=== PATIENT | female | born 1945 | race Hispanic/Latino ===

== ENCOUNTER 2017-05-06 12:18 | Emergency (ER) | payer MEDICARE ==
[~2017-05-06 12:18] MED LIST: ATEN50TA PO; ENAL10TA PO; ESCI10TA54 PO; METF500T6 PO; PANT40TA25 PO; TRAM50TA4 PO
[2017-05-06] MEDS ORDERED: LIDOCAINE 5% TOPICAL PATCH TP ONE (12:47)
[2017-05-06] MEDS ORDERED: KETOROLAC TROMETHAMINE 30MG/ML ONE (12:48)
== END 2017-05-06 14:31 | disposition home or self-care (01) ==
LOC: EDH 12:18
DX: M13.812 Other specified arthritis, left shoulder (principal); E11.9 Type 2 diabetes mellitus without complications; E78.5 Hyperlipidemia, unspecified; I10 Essential (primary) hypertension; M81.0 Age-related osteoporosis without current pathological fracture; Z88.6 Allergy status to analgesic agent
CPT/HCPCS: 96372; 99283; J1885

== ENCOUNTER → 2017-08-24 | Outpatient (CLI) | payer MEDICARE | END | disposition home or self-care (01) | LOC: RAH 12:46 | PROVIDERS: ATTEND Orthopaedic Surgery | DX: M19.012 Primary osteoarthritis, left shoulder (principal) | CPT/HCPCS: 73221 ==

== ENCOUNTER → 2018-12-13 | Outpatient (CLI) | payer MEDICARE ==
[~2018-12-13] MED LIST changes: +METF-444 PO; -METF500T6 PO
== END | disposition home or self-care (01) ==
LOC: RAH 10:53
PROVIDERS: ATTEND Orthopaedic Surgery
DX: S83.242A Other tear of medial meniscus, current injury, left knee, initial encounter (principal); S83.282A Other tear of lateral meniscus, current injury, left knee, initial encounter; X58.XXXA Exposure to other specified factors, initial encounter; Y93.89 Activity, other specified; Y92.89 Other specified places as the place of occurrence of the external cause; Y99.8 Other external cause status
CPT/HCPCS: 73721

== ENCOUNTER → 2025-01-02 | Outpatient (CLI) | payer OTHER, MEDICAID ==
[~2025-01-02] MED LIST changes: +AEC81 PO; +AMLO-257 PO; -ATEN50TA PO; +CARV25TA PO; +CLOP-31 PO; +DONE10TA43 PO; +EMPA1TAB PO; -ENAL10TA PO; -ESCI10TA54 PO; +ISOS60TA77 PO; +LOSA100T59 PO; -PANT40TA25 PO; +RANO500T6 PO; +ROSU10TA72 PO
--- NOTE | 2025-01-02 18:13 | HMCIMG ---
EXAM: MR Left Knee Without Contrast CLINICAL HISTORY: 79-year-old female with a tear of the lateral meniscus. TECHNIQUE: Multiplanar multisequence magnetic resonance images were obtained without contrast. CONTRAST: None COMPARISON: Compared to prior MRI left knee from 12/13/2018 at 11:22 am. FINDINGS: JOINTS: Small left knee joint effusion. Grade 1 sprain of the medial collateral ligament. Mild patellofemoral joint space narrowing. Grade 1 and grade 2 sprains with lateral pathological facets. 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 SOFT TISSUES: Longitudinal tear posterior on medial meniscus with horizontal component into the body. Small-sized Palm's cyst. IMPRESSION: 1. Longitudinal tear posterior on medial meniscus with horizontal component into the body. 2. Grade 1 sprain of the medial collateral ligament. 3. Small-sized Palm's cyst. 4. Small left knee joint effusion. 5. Findings are similar compared to prior MRI left knee from 12/13/2018 at 11:22 am. /[place]
== END | disposition home or self-care (01) ==
LOC: RAH 14:25
PROVIDERS: ATTEND Orthopaedic Surgery
DX: S83.242A Other tear of medial meniscus, current injury, left knee, initial encounter (principal); S83.412A Sprain of medial collateral ligament of left knee, initial encounter; S83.282A Other tear of lateral meniscus, current injury, left knee, initial encounter; M71.22 Synovial cyst of popliteal space [Baker], left knee; M25.462 Effusion, left knee; M13.88 Other specified arthritis, other site; X58.XXXA Exposure to other specified factors, initial encounter; Y93.89 Activity, other specified; Y92.89 Other specified places as the place of occurrence of the external cause; Y99.8 Other external cause status
CPT/HCPCS: 73721